=== PATIENT | female | born 1960 | race Caucasian/White ===

== ENCOUNTER → 2016-06-05 | Outpatient (CLI) | payer BC | LOC: RAD 18:26 | PROVIDERS: ATTEND Specialist | DX: C18.6 Malignant neoplasm of descending colon (principal) | CPT/HCPCS: 78815; A9552 ==

== ENCOUNTER 2016-06-17 08:39 | Day surgery (SDC) | payer BC ==
--- NOTE | 2016-06-14 13:17 | HISTORY AND PHYSICAL E ---
History and Physical NAME: WILLIAM GREENFIELD : 1960 AGE: 55Y ADMITTED: ROOM: CHIEF COMPLAINT: Rectal bleeding; history of colon cancer with metastasis, 2nd course of chemotherapy, presented for colon exam. REVIEW OF SYSTEMS: History of colon cancer, metastasized to the liver; cancer of the descending colon. SOCIAL HISTORY: Does not drink. She does smoke. MEDICATIONS: 1. Morphine sulfate 30 mg for pain. 2. Phenergan. 3. Hydrocodone. 4. Tylenol. FAMILY HISTORY: Lung cancer, maternal aunt. Father had exposure to [place]. Her maternal aunt, kidney cancer. Maternal aunt, bone cancer. PHYSICAL EXAMINATION: GENERAL: Pleasant, alert and oriented. VITAL SIGNS: Blood pressure 120/70, pulse 80, respirations 18, temperature is 98. HEAD, EYES, EARS, NOSE AND THROAT: Normal. NECK: Supple. LUNGS: Clear. ABDOMEN: Soft. NEUROLOGIC EXAM: Negative. CONCLUSION: Colon cancer, stage IV. PLAN: Colon exam. Exam scheduled for 06/17. DICTATING PHYSICIAN: MARY SHIELDS M.D. [id number] PHY#: [id number] ID: [id number] JOB#: [id number] ACCT: [id number] cc:LUCERO SEAY M.D., MAHMOUD M.D. >
[~2016-06-17 08:39] MED LIST: EPINEPHRINE INJ 1 MG/10 ML DISP.SYRIN ONE; FENTANYL CITRATE INJ/PF 100 MCG/2 ML AMPUL ONE; FLUMAZENIL INJ 0.5 MG/5 ML VIAL IV ONE; GLUCAGON,HUMAN RECOMB 1 MG INJ ONE; GLYCOPYRROLATE INJ 0.4 MG/2 ML VIAL ONE; LIDOCAINE 2% JELLY 30 ML TUBE ONE; NALOXONE HCL INJ/PF 0.4 MG/1 ML SDV ONE; ONDANSETRON HCL INJ/PF 4 MG/2 ML SDV ONE; PROMETHAZINE HCL INJ 25 MG/1 ML VIAL ONE
[2016-06-17] MEDS: MIDAZOLAM 2 MG/2 ML INJ ONE ×2 (09:42→09:57)
[2016-06-17 10:59] LABS: ABSOLUTE LYMPHOCYTES (AUTO) 0.8 10^3/uL (0.5-4.7); ABSOLUTE MONOCYTES (AUTO) 0.2 10^3/uL (0.1-1.4); BASOPHILS % (AUTO) 0.5 % (0-2); EOSINOPHILS % (AUTO) 0.5 % (0-6); HEMOGLOBIN 11.7 g/dL (12.0-15.5); HGB HCT DIFFERENCE 1.1; LYMPHOCYTES % (AUTO) 11.8 % (13-45); MEAN CORPUSCULAR HEMOGLOBIN 32.4 pg (27.0-33.4); MEAN CORPUSCULAR HGB CONC 34.3 g/dL (32.0-36.0); MEAN CORPUSCULAR VOLUME 95 fl (80-97); MONOCYTES % (AUTO) 2.2 % (3-13); RED CELL DISTRIBUTION WIDTH 13.7 % (11.5-14.0)
[2016-06-17 11:47] VITALS: BP 100/66
[2016-06-17 11:51] LABS: ALANINE AMINOTRANSFERASE 23 U/L (9-52); ALBUMIN 3.3 g/dL (3.5-5.0); ALKALINE PHOSPHATASE 83 U/L (38-126); ANION GAP 7 (5-19); ASPARTATE AMINO TRANSFERASE 19 U/L (14-36); BILIRUBIN,DIRECT 0.1 mg/dL (0.0-0.4); BILIRUBIN,TOTAL 0.9 mg/dL (0.2-1.3); BLOOD UREA NITROGEN 18 mg/dL (7-20); CALCIUM 9.3 mg/dL (8.4-10.2); CARBON DIOXIDE 26 mmol/L (22-30); CHLORIDE 102 mmol/L (98-107); CREATININE RESULT 0.68 mg/dL (0.52-1.25); GLUCOSE 237 mg/dL (75-110); SODIUM 135.3 mmol/L (137-145); TOTAL PROTEIN 5.7 g/dL (6.3-8.2)
--- NOTE | 2016-06-17 12:48 | OPERATIVE REPORT E ---
Operative Report NAME: WILLIAM GREENFIELD : 1960 AGE: 55Y DATE OF SURGERY: 06/17/2016 ROOM: PREOPERATIVE DIAGNOSIS: THE PATIENT IS A 55-YEAR-OLD FEMALE PREOPERATIVE WITH HISTORY OF COLON CANCER WITH LIVER METASTASES. UNDERWENT SIGMOID RESECTION, NOW SHE PRESENTED FOR FOLLOWUP. PREOPERATIVE COLON CANCER WITH SIGMOID RESECTION. THE PATIENT DOES HAVE COLOSTOMY. SURGEON: MARY SHIELDS M.D. ANESTHESIA: Versed 2, fentanyl 100. PROCEDURE: Rectal exam; shows rectal stool, solid, formed. Sigmoid; stool. We got to an area where there was large amount of stool. We went in and out on multiple occasions and we could not completely evaluate the left colon because of large amount of retained stool in the rectosigmoid. The patient does have colostomy. CONCLUSIONS: Partial obstruction of the left colon secondary to hard stool. PLAN: Keep the patient on full liquids. Will obtain acute abdomen and CBC. We will consider surgical consultation. DICTATING PHYSICIAN: MARY SHIELDS M.D. [id number] [facility]#: [id number] ID: [id number] JOB#: [id number] ACCT: [id number] cc:DR. ALYSON SEAY MAHMOUD M.D. >
--- NOTE | 2016-06-18 19:05 | DISCHARGE SUMMARY E ---
Discharge Summary NAME: WILLIAM GREENFIELD : 1960 AGE: 55Y ADMITTED: 06/17/2016 DISCHARGED: 06/17/2016 HISTORY: The patient is a 55-year-old female known to have colon cancer with liver mets presents with abdominal pain. MEDICATIONS: 1. Percocet. 2. Ativan. 3. Trazodone. 4. Xanax. DISCHARGE PLAN: We will start the patient on clear liquid diet and we start her on Movantik for constipation in addition to MiraLax. Full-liquid diet. Surgical consult. FINAL DIAGNOSIS: Left colon impaction secondary to pain medications. No evidence of recurrent malignancy in the left colon. The patient tolerated the procedure well, discharged to her room in stable condition. CONCLUSIONS: 1. Colon cancer. 2. Severe constipation with left colon impaction. PLAN: Full liquid, MiraLax, Movantik, surgical consultation. DICTATING PHYSICIAN: MARY SHIELDS M.D. [id number] PHY#: [id number] ID: [id number] JOB#: [id number] ACCT: [id number] cc:DR. ALYSON SEAY MAHMOUD M.D. >
== END 2016-06-17 12:10 | disposition home or self-care (01) ==
LOC: END 08:39
PROVIDERS: ATTEND Specialist
PROC: 0DJD8ZZ Inspection of Lower Intestinal Tract, Via Natural or Artificial Opening Endoscopic (ICD-10-PCS; principal; 2016-06-17 09:00)
DX: Z85.038 Personal history of other malignant neoplasm of large intestine (principal); Z90.49 Acquired absence of other specified parts of digestive tract; C78.7 Secondary malignant neoplasm of liver and intrahepatic bile duct; Z09 Encounter for follow-up examination after completed treatment for conditions other than malignant neoplasm; Z93.3 Colostomy status; Z79.899 Other long term (current) drug therapy; F17.210 Nicotine dependence, cigarettes, uncomplicated; Z79.891 Long term (current) use of opiate analgesic
CPT/HCPCS: 45378; 36415; 82378; 85025; 80053; 74020; J2250; J3010; J1610; J2550; J0171; J2310; J2405; J3490

== ENCOUNTER → 2016-09-11 | Outpatient (CLI) | payer BC ==
--- NOTE | 2016-09-12 09:41 | RADIOLOGY REPORT (SQ) ---
EXAM DESCRIPTION: PET CT SKULL/THIGH COMPLETED DATE/TIME: 09/11/2016 9:55 pm REASON FOR STUDY: COLON CANCER C18.6 MALIGNANT NEOPLASM OF DESCENDING COLON COMPARISON: PET-CT 06/05/2016, 02/12/2016, 08/09/2015, 10/19/2014 RADIONUCLIDE AND DOSE: 11.4 mCi F18 FDG The route of agent administration: Intravenous FASTING BLOOD SUGAR: 96 mg/dl CONTRAST TYPE AND DOSE: No CT contrast given. TECHNIQUE: Blood glucose level was verified. Above dose of FDG was injected intravenously. 2-D seg mented attenuation correction images were obtained from the base of the skull to the midthighs. Nonc ontrast CT images were obtained for attenuation correction and fusion with emission images. CT image s were performed without oral or intravenous contrast and are not sensitive for parenchymal lesions. A series of overlapping emission PET images were obtained. Images reviewed and manipulated at [facility] work station by the radiologist. Images stored on PACS. LIMITATIONS: None. FINDINGS: HEAD AND NECK: No areas of abnormal metabolic activity in the soft tissues of the head and neck. CHEST: Again, in the right upper lobe a 1.7 x 1.7 cm spiculated nodule is present on axial image 70. SUV 4.4 (was 1.8 x 1.7 cm with SUV 3.3 on 06/05/2016). ABDOMEN AND PELVIS: There are 3 partially calcified liver lesions as follows: Left lobe liver 2.8 x 2.3 cm axial image 120, SUV 8.5 (was 2.8 x 2.3 cm with SUV 7.4 on 06/05/2016). Left lobe liver 9.7 x 4.3 cm in size with SUV 7.3 (was 8.6 x 4 cm with SUV 7.8 on 06/05/2016) Right lobe liver 2.6 x 1.3 cm SUV 4.9 (was 1.9 x 1.6 cm with SUV 3.7 on 06/05/2016) PROXIMAL LOWER EXTREMITIES: No areas of abnormal metabolic activity in the soft tissues of the lower extremities. BONES: No abnormal metabolic activity in the visualized skeleton. ADDITIONAL CT FINDINGS: Left lower quadrant colostomy with Layton's pouch. Right permanent central line tip superior vena cava. OTHER: Liver background uptake 2.16 SUV, blood pool activity 1.45 SUV IMPRESSION: Slight increase in metabolic activity of right upper lobe and liver lesions as compared to 06/05/2016 TECHNICAL DOCUMENTATION: JOB ID: [id number] [employer] All Rights Reserved
== END ==
LOC: RAD 18:50
PROVIDERS: ATTEND Specialist
DX: C18.6 Malignant neoplasm of descending colon (principal)
CPT/HCPCS: 78815; A9552

== ENCOUNTER → 2017-02-12 | Outpatient (CLI) | payer BC ==
--- NOTE | 2017-02-13 09:59 | RADIOLOGY REPORT (SQ) ---
EXAM DESCRIPTION: PET CT SKULL/THIGH COMPLETED DATE/TIME: 02/12/2017 7:11 pm REASON FOR STUDY: COLON CANCER C18.6 MALIGNANT NEOPLASM OF DESCENDING COLON COMPARISON: PET-CT 10/19/2014, 02/12/2016, 06/05/2016 RADIONUCLIDE AND DOSE: 13.2 mCi F18 FDG The route of agent administration: Intravenous FASTING BLOOD SUGAR: 102 mg/dl CONTRAST TYPE AND DOSE: No CT contrast given. TECHNIQUE: Blood glucose level was verified. Above dose of FDG was injected intravenously. 2-D seg mented attenuation correction images were obtained from the base of the skull to the midthighs. Nonc ontrast CT images were obtained for attenuation correction and fusion with emission images. CT image s were performed without oral or intravenous contrast and are not sensitive for parenchymal lesions. A series of overlapping emission PET images were obtained. Images reviewed and manipulated at [facility] work station by the radiologist. Images stored on PACS. LIMITATIONS: None. FINDINGS: HEAD AND NECK: No areas of abnormal metabolic activity in the soft tissues of the head and neck. CHEST: Persistent spiculated nodule in the right upper lobe axial image 72, currently 2 x 1.7 cm in s ize with SUV 4.9 (was 1.7 x 1.7 cm with SUV 4.4 on 06/05/2016) ABDOMEN AND PELVIS: There are treated partially calcified liver lesions, which exhibit peripheral rim of increased metabolic uptake as follows: Left lobe liver partially calcified mass 5 x 3 cm on image 124, SUV 6.8 (was 2.8 x 2.3 cm in size wit h SUV 8.5 on 06/05/2016). Left lobe liver 9 x 4.4 cm mass with peripheral rim of increased activity SUV 5.7 (was 9.7 x 4.3 cm i n size with SUV of 7.3 on 06/05/2016) Right lobe liver inferiorly, 3.4 x 2.6 cm in size SUV 3.7 (was 2.9 x 2.6 cm with SUV 4.9 on 06/05/2016 ). PROXIMAL LOWER EXTREMITIES: No areas of abnormal metabolic activity in the soft tissues of the lower extremities. BONES: No abnormal metabolic activity in the visualized skeleton. ADDITIONAL CT FINDINGS: Left lower quadrant colostomy and pelvis Layton pouch. Right permanent tami e tip superior vena cava. OTHER: Liver background SUV 1.7. Blood pool background SUV 1.3. IMPRESSION: Total number of metastatic lesions is stable compared to PET-CT 06/05/2016. There is peripheral rim of increased metabolic activity around treated partially calcified liver meta static lesions. Overall, these are less metabolically active than on 06/05/2016. Slight increase in size of spiculated right upper lobe nodule with increased metabolic activity as co mpared to 06/05/2016 TECHNICAL DOCUMENTATION: JOB ID: [id number] [employer]- All Rights Reserved
== END ==
LOC: RAD 15:28
PROVIDERS: ATTEND Internal Medicine Hematology & Oncology
DX: C18.9 Malignant neoplasm of colon, unspecified (principal)
CPT/HCPCS: 78815; A9552

== ENCOUNTER → 2017-05-07 | Outpatient (CLI) | payer BC ==
--- NOTE | 2017-05-08 08:55 | RADIOLOGY REPORT (SQ) ---
EXAM DESCRIPTION: PET CT SKULL/THIGH COMPLETED DATE/TIME: 05/07/2017 6:35 pm REASON FOR STUDY: COLON CANCER C18.6 MALIGNANT NEOPLASM OF DESCENDING COLON COMPARISON: Prior PET-CT exams 02/12/2017, 09/11/2016, 06/05/2016 RADIONUCLIDE AND DOSE: 10.6 mCi F18 FDG The route of agent administration: Intravenous FASTING BLOOD SUGAR: 86 mg/dl CONTRAST TYPE AND DOSE: No CT contrast given. TECHNIQUE: Blood glucose level was verified. Above dose of FDG was injected intravenously. 2-D seg mented attenuation correction images were obtained from the base of the skull to the midthighs. Nonc ontrast CT images were obtained for attenuation correction and fusion with emission images. CT image s were performed without oral or intravenous contrast and are not sensitive for parenchymal lesions. A series of overlapping emission PET images were obtained. Images reviewed and manipulated at [facility] work station by the radiologist. Images stored on PACS. LIMITATIONS: None. FINDINGS: HEAD AND NECK: No areas of abnormal metabolic activity in the soft tissues of the head and neck. CHEST: In the right upper lobe, increase in size and metabolic activity of the spiculated nodule on a xial image 70, now 2.4 x 2 cm in size with SUV 6.5 (was 2 x 1.7 cm in size with SUV 4.9 on 02/12/2017 PET-CT). ABDOMEN AND PELVIS: Increase in size and activity of liver metastatic lesions as follows: 8 x 6 cm mass sub- diaphragmatic surface left lobe liver image 119, SUV 8.3 (was 5 x 3 cm in size wit h SUV 6.8 on 02/12/2017 PET-CT). 11.3 x 5.2 cm mass, left lobe liver with SUV of 8.0 (was 9 x 4.4 cm in size with SUV 5.7 on 7 PET-CT). 5.9 x 5.3 cm mass inferior right lobe liver image 152 with SUV of 6.5 (was 3.4 x 2.6 cm in size with SUV 3.7 on 02/12/2017 PET-CT). PROXIMAL LOWER EXTREMITIES: No areas of abnormal metabolic activity in the soft tissues of the lower extremities. BONES: No abnormal metabolic activity in the visualized skeleton. ADDITIONAL CT FINDINGS: Right-sided permanent central line tip superior vena cava. Old left lower qu adrant colostomy with Layton's pouch. OTHER: Blood pool activity 1.2 SUV. Liver background activity 1.5 SUV IMPRESSION: Progression of liver disease and right upper lobe spiculated nodule compared to previous exams TECHNICAL DOCUMENTATION: JOB ID: [id number] [employer]- All Rights Reserved
== END ==
LOC: RAD 15:35
PROVIDERS: ATTEND Internal Medicine
DX: C18.9 Malignant neoplasm of colon, unspecified (principal)
CPT/HCPCS: 78815; A9552

== ENCOUNTER → 2017-05-30 | Outpatient (CLI) | payer BC ==
--- NOTE | 2017-05-30 19:50 | RADIOLOGY REPORT (SQ) ---
EXAM DESCRIPTION: OS CALCIS/HEEL RIGHT COMPLETED DATE/TIME: 05/30/2017 6:59 pm REASON FOR STUDY: INJURY OF RIGHT FOOT, INITIAL ENCOUNTER COMPARISON: None. NUMBER OF VIEWS: Two views. TECHNIQUE: Plantar and lateral images acquired of the right calcaneous. LIMITATIONS: None. FINDINGS: MINERALIZATION: Normal. BONES: No fracture dislocation. There is a small dorsal calcaneal spur and a larger plantar calcanea l spur. JOINTS: No effusions. SOFT TISSUES: No soft tissue swelling. No foreign body. OTHER: No other significant finding. IMPRESSION: Small calcaneal spurs with no acute abnormality. TECHNICAL DOCUMENTATION: JOB ID: [id number] [employer]- All Rights Reserved Reading location - IP/workstation name: [email or web address]
== END ==
LOC: RAD 17:58
PROVIDERS: ATTEND Nurse Practitioner Acute Care
DX: S99.921A Unspecified injury of right foot, initial encounter (principal); X58.XXXA Exposure to other specified factors, initial encounter; Y93.9 Activity, unspecified; Y92.9 Unspecified place or not applicable; Y99.9 Unspecified external cause status

== ENCOUNTER 2017-06-02 19:47 | Emergency (ER) | payer BC ==
--- NOTE | 2017-06-02 20:34 | ER Document Report ---
ED General - General Stated Complaint: POSSIBLE OVERDOSE Time Seen by Provider: 06/02/17 19:55 Notes: Patient is a 56 year old female with a past medical history of metastatic colon cancer with progressive lesions in her liver who presents after having an apparent unintentional opiate overdose. The history is somewhat limited as the patient herself still somnolent at time of arrival and the is uncertain of the exact details of what occurred today. EMS does report that when they found the patient she was hypoventilating approximately 4 times per minute and appeared extremely lethargic and somnolent. They did administer 2 mg of intranasal naloxone with complete reversal of this clinical presentation. The patient and her deny any history of similar symptoms in the past. The patient is uncertain of the quantity of pain medication she took today but does have OxyContin 40 mg available to her as well as 20 mg oxycodone's. Her son at the bedside reports that when he found the patient there were "pills scattered everywhere". Patient denies any intentional overdose. She is however adamant to say that she wants to be a DNR and DNI, wants comfort measures only. At time of my assessment the patient denies any ongoing acute complaints, is asking for glass of orange juice. TRAVEL OUTSIDE OF THE [place] IN LAST 30 DAYS: No - Related Data Allergies/Adverse Reactions: CHEMOTHERAPY Allergy (Severe, Uncoded 06/15/16 13:51) THROAT SWELL Past Medical History - General Information source: Patient, Relative - Social History Smoking Status: Former Smoker Frequency of alcohol use: None Drug Abuse: None Lives with: Family Family History: Reviewed & Not Pertinent - Past Medical History Cardiac Medical History: Denies: Hx Coronary Artery Disease, Hx Heart Attack, Hx Hypertension Pulmonary Medical History: Reports: Hx Pneumonia Denies: Hx Asthma, Hx Bronchitis, Hx COPD Neurological Medical History: Denies: Hx Cerebrovascular Accident, Hx Seizures Musculoskeltal Medical History: Denies Hx Arthritis Past Surgical History: Denies: Hx Hysterectomy - Immunizations Hx Diphtheria, Pertussis, Tetanus Vaccination: Yes Review of Systems - Review of Systems Notes: Constitutional: Negative for fever. HENT: Negative for sore throat. Eyes: Negative for visual changes. Cardiovascular: Negative for chest pain. Respiratory: Negative for shortness of breath. Gastrointestinal: Negative for abdominal pain, vomiting or diarrhea. Genitourinary: Negative for dysuria. Musculoskeletal: Positive chronic generalized pain Skin: Negative for rash. Neurological: Negative for headaches, weakness or numbness. 10 point ROS negative except as marked above and in HPI. Physical Exam - Vital signs Vitals: Resp Pulse Ox 16 87 L 06/02/17 20:01 06/02/17 20:01 Interpretation: Tachycardic Notes: PHYSICAL EXAMINATION: GENERAL: Mildly somnolent but wakes easily. Somewhat emaciated. No acute distress HEAD: Atraumatic, normocephalic. EYES: Pupils equal round and reactive to light, extraocular movements intact, sclera anicteric, conjunctiva are normal. ENT: nares patent, oropharynx clear without exudates. Moderately dry mucous membranes. NECK: Normal range of motion, supple without lymphadenopathy LUNGS: Breath sounds clear to auscultation bilaterally and equal. No wheezes rales or rhonchi. HEART: Regular tachycardia without murmurs ABDOMEN: Soft, nontender, normoactive bowel sounds. No guarding, no rebound. No masses appreciated. EXTREMITIES: no pitting or edema. No cyanosis. NEUROLOGICAL: No focal neurological deficits. Moves all extremities spontaneously and on command. PSYCH: Moderately somnolent SKIN: Warm, Dry, normal turgor, no rashes or lesions noted. Course - Re-evaluation Re-evalutation: 06/02/17 20:30 Patient is an unfortunate 56-year-old woman with a history of metastatic colon cancer that has progressed despite chemotherapy. The patient is currently transitioning toward end-of- life care although has not definitively made that transition at this time. She is however adamant that she does not wish to be anything other than comfort measures at this time. I have discussed this case with Dr. Garber the patient' s oncologist and he is in agreement with not pursuing an extensive workup at this point given the patient's clinical history is consistent with a narcotic overdose. We have also reviewed that the patient will have her contact the office on Monday to schedule an appointment to discuss goals of care as well as in-home services. Patient and her are in agreement with this plan. The patient's son is also the bedside. I have emphasized with him, the patient, and her that some of the patient's vitals are not entirely normal including borderline hypotension, mild tachycardia, and a borderline oxygen saturation at 93%. The family continues to be in complete agreement with avoiding any kind of imaging, labs or therapeutic interventions at this point. The patient has drinking orange juice, smiling and conversant with her family at the time of discharge. - Vital Signs Vital signs: Temp Pulse Resp BP Pulse Ox 98.3 F 100 18 98/64 L 94 06/02/17 21:19 06/02/17 21:07 06/02/17 21:07 06/02/17 21:07 06/02/17 21:07 Discharge - Discharge Clinical Impression: Metastatic colon cancer in female Narcotic overdose Qualifiers: Encounter type: initial encounter Injury intent: accidental or unintentional Qualified Code(s): T40.601A - Poisoning by unspecified narcotics, accidental ( unintentional), initial encounter Condition: Fair Disposition: HOME, SELF-CARE Additional Instructions: Please contact your oncologist's office on Monday to schedule an appointment to discuss goals of care. Please take the opiate pain medications exactly as directed and monitor for signs of confusion, slowed breathing, or becoming extremely tired as these can indicate that your taking too many pain medications. Please return if you have any new or worrisome symptoms. Referrals: STORM MICHAEL MD [Primary Care Provider] - Follow up as needed
[2017-06-02 21:18] VITALS: BP 82/60
== END 2017-06-02 21:21 | disposition home or self-care (01) ==
LOC: ER 19:47
DX: C18.9 Malignant neoplasm of colon, unspecified (principal); C78.7 Secondary malignant neoplasm of liver and intrahepatic bile duct; T40.601A Poisoning by unspecified narcotics, accidental (unintentional), initial encounter; Z87.891 Personal history of nicotine dependence
CPT/HCPCS: 99284

== ENCOUNTER 2017-08-18 14:44 | Emergency (ER) | payer BC ==
--- NOTE | 2017-08-18 14:58 | ER Document Report ---
ED Medical Screen (RME) - General Chief Complaint: Fall Injury Stated Complaint: FALL/SHOULDER PAIN Time Seen by Provider: 08/18/17 14:53 Mode of Arrival: Wheelchair Information source: Patient Notes: 57-year-old female history of metastatic colon cancer presents with complaints of right shoulder pain. Patient notes she fell off the top stair in the garage she states she was turning too quickly and lost her balance. Patient notes laceration to right forearm but states the worst pain is in the right shoulder I have greeted and performed a rapid initial assessment of this patient. A comprehensive ED assessment and evaluation of the patient, analysis of test results and completion of the medical decision making process will be conducted by additional ED providers. PHYSICAL EXAMINATION: GENERAL: Well-appearing, well-nourished and in no acute distress. HEAD: Atraumatic, normocephalic. EYES: Pupils equal round extraocular movements intact, conjunctiva are normal. ENT: Nares patent NECK: Normal range of motion LUNGS: No respiratory distress Musculoskeletal: Right shoulder in sling limited range of motion of the shoulder right NEUROLOGICAL: Normal speech, normal gait. PSYCH: Normal mood, normal affect. SKIN: Laceration noted by patient but dressing is over the forearm TRAVEL OUTSIDE OF THE [place] IN LAST 30 DAYS: No - Related Data Allergies/Adverse Reactions: CHEMOTHERAPY Allergy (Severe, Uncoded 08/18/17 14:44) THROAT SWELL Past Medical History - Past Medical History Cardiac Medical History: Denies: Hx Coronary Artery Disease, Hx Heart Attack, Hx Hypertension Pulmonary Medical History: Reports: Hx Pneumonia Denies: Hx Asthma, Hx Bronchitis, Hx COPD Neurological Medical History: Denies: Hx Cerebrovascular Accident, Hx Seizures Renal/ Medical History: Denies: Hx Peritoneal Dialysis Musculoskeltal Medical History: Denies Hx Arthritis Past Surgical History: Denies: Hx Hysterectomy - Immunizations Hx Diphtheria, Pertussis, Tetanus Vaccination: Yes Physical Exam - Vital signs Vitals: Temp Pulse Resp BP Pulse Ox 99.6 F 99 20 108/69 96 08/18/17 14:53 08/18/17 14:53 08/18/17 14:53 08/18/17 14:53 08/18/17 14:53 Course - Vital Signs Vital signs: Temp Pulse Resp BP Pulse Ox 99.6 F 99 20 108/69 96 08/18/17 14:53 08/18/17 14:53 08/18/17 14:53 08/18/17 14:53 08/18/17 14:53
--- NOTE | 2017-08-18 15:19 | RADIOLOGY REPORT (SQ) ---
EXAM DESCRIPTION: SHOULDER RIGHT 2 OR MORE VIEWS COMPLETED DATE/TIME: 08/18/2017 3:08 pm REASON FOR STUDY: fall injury deformity COMPARISON: None. NUMBER OF VIEWS: Two views. TECHNIQUE: Frontal and lateral images acquired of the right shoulder. LIMITATIONS: None. FINDINGS: MINERALIZATION: Normal. BONES: There is comminuted fracture of the right humeral head and neck. JOINTS: No dislocation. VISUALIZED LUNGS AND RIBS: No pneumothorax. No rib fracture. SOFT TISSUES: No radiopaque foreign body. OTHER: No other significant finding. IMPRESSION: Fracture of the right humeral head and neck. There are no findings that suggest a patho logical fracture. TECHNICAL DOCUMENTATION: JOB ID: [id number] [employer]- All Rights Reserved Reading location - IP/workstation name: [email or web address]
[2017-08-18] MEDS ORDERED: DIPH/PERTUSS(ACELL)/TETANUS VAC/PF 0.5 ML SYR (>=10YO) IM ONE (15:33)
[2017-08-18] MEDS ORDERED: OXYCODONE HCL IR 5 MG TABLET PO ONE (15:34)
--- NOTE | 2017-08-18 15:59 | ER Document Report ---
ED General - General Chief Complaint: Fall Injury Stated Complaint: FALL/SHOULDER PAIN Time Seen by Provider: 08/18/17 14:53 Mode of Arrival: Wheelchair Information source: Patient, Relative TRAVEL OUTSIDE OF THE [place] IN LAST 30 DAYS: No - HPI Notes: 57-year-old female with metastatic colon cancer currently on hospice with estimated 6 weeks left to live by report from hospice presents with report that she lost her balance going down the stairs and fell 3 stairs injuring her right shoulder. No other injury besides an abrasion to the right forearm. There is no head injury, neck pain, back pain, chest pain, difficulty breathing, abdominal pain beyond her baseline. No elbow or wrist pain. Unsure of last tetanus, and a tetanus shot was given. - Related Data Allergies/Adverse Reactions: CHEMOTHERAPY Allergy (Severe, Uncoded 08/18/17 14:44) THROAT SWELL Past Medical History - General Information source: Patient - Social History Smoking Status: Current Every Day Smoker Frequency of alcohol use: None Drug Abuse: None Lives with: Family Family History: Reviewed & Not Pertinent Patient has suicidal ideation: No Patient has homicidal ideation: No - Past Medical History Cardiac Medical History: Denies: Hx Coronary Artery Disease, Hx Heart Attack, Hx Hypertension Pulmonary Medical History: Reports: Hx Pneumonia Denies: Hx Asthma, Hx Bronchitis, Hx COPD Neurological Medical History: Denies: Hx Cerebrovascular Accident, Hx Seizures Renal/ Medical History: Denies: Hx Peritoneal Dialysis Musculoskeltal Medical History: Denies Hx Arthritis Past Surgical History: Denies: Hx Hysterectomy - Immunizations Hx Diphtheria, Pertussis, Tetanus Vaccination: Yes Review of Systems - Review of Systems Notes: REVIEW OF SYSTEMS: CONSTITUTIONAL : Denies fever, chills, or sweats. Denies recent illness. EENT: Denies eye, ear, throat, or mouth pain or symptoms. Denies nasal or sinus congestion or discharge. Denies throat, tongue, or mouth swelling or difficulty swallowing. CARDIOVASCULAR: Denies chest pain. Denies palpitations or racing or irregular heart beat. Denies ankle edema. RESPIRATORY: Denies cough, cold, or chest congestion. Denies shortness of breath, difficulty breathing, or wheezing. GASTROINTESTINAL: Denies abdominal pain or distention. Denies nausea, vomiting , or diarrhea. Denies blood in vomitus, stools, or per rectum. Denies black, tarry stools. Denies constipation. GENITOURINARY: Denies difficulty urinating, painful urination, burning, frequency, blood in urine, or discharge. FEMALE GENITOURINARY: Denies vaginal bleeding, heavy or abnormal periods, irregular periods. Denies vaginal discharge or odor. MUSCULOSKELETAL: Denies back or neck pain or stiffness. SKIN: Denies rash, lesions or sores. HEMATOLOGIC : Denies easy bruising or bleeding. LYMPHATIC: Denies swollen, enlarged glands. NEUROLOGICAL: Denies confusion or altered mental status. Denies passing out or loss of consciousness. Denies dizziness or lightheadedness. Denies headache. Denies weakness or paralysis or loss of use of either side. Denies problems with gait or speech. Denies sensory loss, numbness, or tingling. Denies seizures. PSYCHIATRIC: Denies anxiety or stress. Denies depression, suicidal ideation, or homicidal ideation. ALL OTHER SYSTEMS REVIEWED AND NEGATIVE. Dictation was performed using [employer] voice recognition software Physical Exam - Vital signs Vitals: Temp Pulse Resp BP Pulse Ox 99.6 F 99 20 108/69 96 08/18/17 14:53 08/18/17 14:53 08/18/17 14:53 08/18/17 14:53 08/18/17 14:53 - Notes Notes: PHYSICAL EXAMINATION: GENERAL: Well-appearing, well-nourished and in no acute distress. HEAD: Atraumatic, normocephalic. EYES: Pupils equal round and reactive to light, extraocular movements intact, conjunctiva are normal. ENT: Nares patent, oropharynx clear without exudates. Moist mucous membranes. NECK: Normal range of motion, supple without lymphadenopathy LUNGS: Breath sounds clear to auscultation bilaterally and equal. No wheezes rales or rhonchi. HEART: Regular rate and rhythm without murmurs ABDOMEN: Soft, nontender, nondistended abdomen. No guarding, no rebound. No masses appreciated. Colostomy site clear. Female : deferred Musculoskeletal: no pitting or edema. No cyanosis. Pain noted over right shoulder with mild foreshortening and angulation. No open fracture. Small abrasion right elbow and small skin tear over the right wrist. No bony tenderness over the elbow or wrist. The hand is nontender. Distally, the patient has good sensation and capillary refill and pulses. NEUROLOGICAL: Cranial nerves grossly intact. Normal speech, normal gait. Normal sensory, motor exams PSYCH: Normal mood, normal affect. SKIN: Warm, Dry, normal turgor, no rashes or lesions noted. Course - Re-evaluation Re-evalutation: 08/18/17 15:57 Discussion was undertaken with orthopedics Dr. Caceres who agreed to see the patient in follow-up on Monday. He agreed with management plan with a weighted long arm posterior splint and a sling and patient already has medications for pain at home. She will be given a tetanus shot. No evidence for neurovascular compromise or other injury. - Vital Signs Vital signs: Temp Pulse Resp BP Pulse Ox 99.6 F 99 20 108/69 96 08/18/17 14:53 08/18/17 14:53 08/18/17 14:53 08/18/17 14:53 08/18/17 14:53 Discharge - Discharge Clinical Impression: Abrasion Accidental fall Qualifiers: Encounter type: initial encounter Qualified Code(s): W19.XXXA - Unspecified fall, initial encounter Shoulder fracture, right Qualifiers: Encounter type: initial encounter Fracture type: closed Qualified Code(s): S42.91XA - Fracture of right shoulder girdle, part unspecified, initial encounter for closed fracture Condition: Stable Disposition: HOME, SELF-CARE Instructions: Fracture Proximal Humerus Referrals: ELIAN ORDONEZ MD [Primary Care Provider] - Follow up as needed FRANCHESCA CACERES MD [ACTIVE STAFF] - 08/22/17
[2017-08-18 17:16] VITALS: BP 103/66
== END 2017-08-18 17:18 | disposition home or self-care (01) ==
LOC: ER 14:44
PROC: 2W38X1Z Immobilization of Right Upper Extremity using Splint (ICD-10-PCS; principal; 2017-08-18)
DX: S42.91XA Fracture of right shoulder girdle, part unspecified, initial encounter for closed fracture (principal); S50.811A Abrasion of right forearm, initial encounter; M25.511 Pain in right shoulder; C18.9 Malignant neoplasm of colon, unspecified; C79.9 Secondary malignant neoplasm of unspecified site; W10.9XXA Fall (on) (from) unspecified stairs and steps, initial encounter; F17.200 Nicotine dependence, unspecified, uncomplicated
CPT/HCPCS: 90471; 90715; 99283